=== PATIENT | female | born 1980 | race Caucasian/White ===

== ENCOUNTER 2019-01-17 07:41 | Emergency (ER) | payer SELFPAY ==
[~2019-01-17] VITALS: Ht 162.6 cm; Wt 119.0 kg
[2019-01-17 07:56] VITALS: BP 139/47
[2019-01-17] MEDS ORDERED: LIDOCAINE-MPF 1%, 5ML ONE (08:24)
--- NOTE | 2019-01-17 08:29 | NUR ---
CONTACT WITH PT, 38 YR OLD FEMALE HERE WITH C/O "I HAVE THESE BITES. THEY SAID THEY WERE ABCESSES. THEY REALLY HURT" ON BUTTOCKS, WAIST AND LEFT ELBOW. HAVE BEEN THERE FOR APPROX 1 1/2 WEEKS.
[2019-01-17] MEDS ORDERED: LIDOCAINE-MPF 1%, 5ML INFIL ONE (08:30)
--- NOTE | 2019-01-17 09:15 | NUR ---
PT LAYING ON LEFT SIDE, DRESSED. NO IV TO DC. REVIEWED DC INSTRUCTIONS WITH PT. UNDERSTANDING VERBALIZED. PT LEFT VIA W/C PER REQUEST "IT HURTS TOO MUCH TO WALK"
== END 2019-01-17 09:17 | disposition home or self-care (01) ==
LOC: ED 08:28
DX: L02.31 Cutaneous abscess of buttock (principal); E66.9 Obesity, unspecified
CPT/HCPCS: 10061; 99284